=== PATIENT | male | born 1975 | race Caucasian/White ===

== ENCOUNTER 2016-05-27 06:35 | Emergency (ER) | payer BC | END 2016-05-27 08:07 | disposition home or self-care (01) | LOC: ER 06:35 | DX: N20.1 Calculus of ureter (principal); I25.2 Old myocardial infarction; I10 Essential (primary) hypertension; Z87.891 Personal history of nicotine dependence; Z79.82 Long term (current) use of aspirin; Z95.5 Presence of coronary angioplasty implant and graft | CPT/HCPCS: 36415; 96361; 96374; 96375; J1885 ==